=== PATIENT | male | born 1940 | race Caucasian/White ===

== ENCOUNTER 2016-09-30 08:40 | Outpatient (CLI) | payer MEDICARE, OTHER | END 2016-09-30 08:41 | disposition home or self-care (01) | DX: Z95.4 Presence of other heart-valve replacement (principal); Z79.01 Long term (current) use of anticoagulants ==

== ENCOUNTER 2016-10-28 08:20 | Outpatient (CLI) | payer MEDICARE, OTHER | END 2016-10-28 08:21 | disposition home or self-care (01) | DX: Z79.01 Long term (current) use of anticoagulants (principal); Z95.4 Presence of other heart-valve replacement ==

== ENCOUNTER 2016-11-25 09:35 | Outpatient (CLI) | payer MEDICARE, OTHER | END 2016-11-25 09:36 | disposition home or self-care (01) | DX: Z95.4 Presence of other heart-valve replacement (principal); Z79.01 Long term (current) use of anticoagulants ==

== ENCOUNTER 2016-12-10 11:31 | Outpatient (CLI) | payer MEDICARE, OTHER | END 2016-12-10 11:32 | disposition home or self-care (01) | DX: C61 Malignant neoplasm of prostate (principal); N52.31 Erectile dysfunction following radical prostatectomy ==

== ENCOUNTER 2016-12-23 10:18 | Outpatient (CLI) | payer MEDICARE, OTHER | END 2016-12-23 10:19 | disposition home or self-care (01) | DX: Z79.01 Long term (current) use of anticoagulants (principal); Z95.4 Presence of other heart-valve replacement ==

== ENCOUNTER 2017-01-13 09:42 | Outpatient (CLI) | payer MEDICARE, OTHER | END 2017-01-13 09:43 | disposition home or self-care (01) | LOC: LAB.F 09:42 | PROVIDERS: ATTEND Internal Medicine | DX: Z95.4 Presence of other heart-valve replacement (principal); Z79.01 Long term (current) use of anticoagulants | CPT/HCPCS: 85610 ==

== ENCOUNTER 2017-02-10 10:24 | Outpatient (CLI) | payer MEDICARE, OTHER | END 2017-02-10 10:25 | disposition home or self-care (01) | LOC: LAB.F 10:24 | PROVIDERS: ATTEND Internal Medicine | DX: Z95.4 Presence of other heart-valve replacement (principal); Z79.01 Long term (current) use of anticoagulants | CPT/HCPCS: 85610 ==

== ENCOUNTER 2017-03-10 10:32 | Outpatient (CLI) | payer MEDICARE, OTHER | END 2017-03-10 10:33 | disposition home or self-care (01) | LOC: LAB.F 10:32 | PROVIDERS: ATTEND Internal Medicine | DX: Z95.4 Presence of other heart-valve replacement (principal); Z79.01 Long term (current) use of anticoagulants | CPT/HCPCS: 85610 ==

== ENCOUNTER 2017-04-07 08:06 | Outpatient (CLI) | payer MEDICARE, OTHER | END 2017-04-07 08:07 | disposition home or self-care (01) | LOC: LAB.F 08:06 | PROVIDERS: ATTEND Internal Medicine | DX: Z95.4 Presence of other heart-valve replacement (principal); Z79.01 Long term (current) use of anticoagulants | CPT/HCPCS: 85610 ==

== ENCOUNTER 2017-05-05 09:11 | Outpatient (CLI) | payer MEDICARE, OTHER | END 2017-05-05 09:12 | disposition home or self-care (01) | LOC: LAB.F 09:11 | PROVIDERS: ATTEND Internal Medicine | DX: Z95.4 Presence of other heart-valve replacement (principal); Z79.01 Long term (current) use of anticoagulants | CPT/HCPCS: 85610 ==

== ENCOUNTER 2017-06-02 10:07 | Outpatient (CLI) | payer MEDICARE, OTHER | END 2017-06-02 10:08 | disposition home or self-care (01) | LOC: LAB.F 10:07 | PROVIDERS: ATTEND Internal Medicine | DX: Z95.4 Presence of other heart-valve replacement (principal); Z79.01 Long term (current) use of anticoagulants | CPT/HCPCS: 85610 ==

== ENCOUNTER 2017-06-30 08:27 | Outpatient (CLI) | payer MEDICARE, OTHER | END 2017-06-30 08:28 | disposition home or self-care (01) | LOC: LAB.F 08:27 | PROVIDERS: ATTEND Internal Medicine | DX: Z95.4 Presence of other heart-valve replacement (principal); Z79.01 Long term (current) use of anticoagulants | CPT/HCPCS: 85610 ==

== ENCOUNTER 2017-07-15 13:05 | Outpatient (CLI) | payer MEDICARE, OTHER ==
[2017-07-15 18:34] LABS: ALBUMIN/GLOBULIN RATIO 1.6 (1.0-2.2); BILIRUBIN,TOTAL 0.7 mg/dL (0.2-1.0); BUN - BLOOD UREA NITROGEN 15 mg/dL (6-20); CALCIUM 8.6 mg/dL (8.5-10.3); CARBON DIOXIDE - CO2 25 mmol/L (21-32); CHLORIDE 107 mmol/L (101-111); CHOL/HDL RATIO 3.6 (<5.0); CHOLESTEROL 197 mg/dL; CREATININE 0.8 mg/dL (0.6-1.2); GFR - MDRD 94 (>89); GLUCOSE 90 mg/dL (70-100); HDL CHOLESTEROL 55 mg/dL; LDL/HDL RATIO 2.3 (<3.6); POTASSIUM 3.8 mmol/L (3.5-5.0); SODIUM 139 mmol/L (135-145); TOTAL PROTEIN 7.5 g/dL (6.7-8.2); TRIGLYCERIDES 73 mg/dL; VLDL CHOLESTEROL 15 mg/dL
== END 2017-07-15 13:06 | disposition home or self-care (01) ==
LOC: LAB.F 13:05
PROVIDERS: ATTEND Family Medicine
DX: D64.9 Anemia, unspecified (principal); Z79.01 Long term (current) use of anticoagulants; C61 Malignant neoplasm of prostate; I10 Essential (primary) hypertension
CPT/HCPCS: 36415; 80053; 80061

== ENCOUNTER 2017-07-28 10:58 | Outpatient (CLI) | payer MEDICARE, OTHER | END 2017-07-28 10:59 | disposition home or self-care (01) | LOC: LAB.F 10:58 | PROVIDERS: ATTEND Internal Medicine | DX: Z95.4 Presence of other heart-valve replacement (principal); Z79.01 Long term (current) use of anticoagulants | CPT/HCPCS: 85610 ==

== ENCOUNTER 2017-08-25 10:22 | Outpatient (CLI) | payer MEDICARE, OTHER | END 2017-08-25 10:23 | disposition home or self-care (01) | LOC: LAB.F 10:22 | PROVIDERS: ATTEND Internal Medicine | DX: Z95.4 Presence of other heart-valve replacement (principal); Z79.01 Long term (current) use of anticoagulants | CPT/HCPCS: 85610 ==

== ENCOUNTER 2017-09-22 07:06 | Outpatient (CLI) | payer MEDICARE, OTHER | END 2017-09-22 07:07 | disposition home or self-care (01) | LOC: LAB.F 07:06 | PROVIDERS: ATTEND Internal Medicine | DX: Z95.4 Presence of other heart-valve replacement (principal); Z79.01 Long term (current) use of anticoagulants | CPT/HCPCS: 85610 ==

== ENCOUNTER 2017-10-21 07:22 | Outpatient (CLI) | payer MEDICARE, OTHER ==
[2017-10-21 10:38] LABS: BASOPHILS % (AUTO) 0.4 %; EOSINOPHILS % (AUTO) 2.6 %; HGB - HEMOGLOBIN 13.8 g/dL (14.0-18.0); LYMPHOCYTES % (AUTO) 25.4 %; MEAN CORPUSCULAR HEMOGLOBIN 29.6 pg (27.0-31.0); MEAN CORPUSCULAR HGB CONC 34.2 g/dL (32.0-36.0); MEAN CORPUSCULAR VOLUME 86.7 fL (80.0-94.0); MEAN PLATELET VOLUME 8.2 fL (7.4-11.4); NEUTROPHILS % (AUTO) 59.6 %; PLT - PLATELET COUNT 203 10^3/uL (130-450); RED BLOOD COUNT 4.67 10^6/uL (4.70-6.10); RED CELL DISTRIBUTION WIDTH 13.3 % (12.0-15.0)
[2017-10-21 10:40] LABS: ABNORMAL LYMPHS % (MANUAL) 0 %
[2017-10-21 11:08] LABS: BAND NEUTROPHILS % (MANUAL) 3 %; EOSINOPHILS # (MANUAL) 0.1 10^3/uL (0-0.7); LYMPHOCYTES % (MANUAL) 19 %; MONOCYTES # (MANUAL) 0.3 10^3/uL (0.0-1.0); NEUTROPHILS # (MANUAL) 2.6 10^3/uL (1.5-6.6); NEUTROPHILS % (MANUAL) 62 %
[2017-10-21 11:09] LABS: DIFFERENTIAL COMMENT MANUAL DIFFERENTIAL
== END 2017-10-21 07:23 | disposition home or self-care (01) ==
LOC: LAB.F 07:22
PROVIDERS: ATTEND Internal Medicine
DX: Z95.4 Presence of other heart-valve replacement (principal); Z95.2 Presence of prosthetic heart valve; Z79.01 Long term (current) use of anticoagulants; Q23.0 Congenital stenosis of aortic valve; Z79.899 Other long term (current) drug therapy
CPT/HCPCS: 36415; 85025; 85610

== ENCOUNTER → 2017-12-01 | Outpatient (CLI) | payer MEDICARE, OTHER | LOC: LAB.F 08:00 | PROVIDERS: ATTEND Internal Medicine | DX: Z95.4 Presence of other heart-valve replacement (principal); Z79.01 Long term (current) use of anticoagulants | CPT/HCPCS: 85610 ==

== ENCOUNTER 2018-01-12 08:20 | Outpatient (CLI) | payer MEDICARE, OTHER | END 2018-01-12 08:21 | disposition home or self-care (01) | LOC: LAB.F 08:20 | PROVIDERS: ATTEND Internal Medicine | DX: Z95.4 Presence of other heart-valve replacement (principal); Z79.01 Long term (current) use of anticoagulants | CPT/HCPCS: 85610 ==

== ENCOUNTER 2018-02-23 08:43 | Outpatient (CLI) | payer MEDICARE, OTHER | END 2018-02-23 08:44 | disposition home or self-care (01) | LOC: LAB.F 08:43 | PROVIDERS: ATTEND Internal Medicine | DX: Z79.01 Long term (current) use of anticoagulants (principal); Z95.4 Presence of other heart-valve replacement | CPT/HCPCS: 85610 ==

== ENCOUNTER 2018-03-30 08:38 | Outpatient (CLI) | payer MEDICARE, OTHER ==
--- NOTE | 2018-03-30 14:46 | DEXA Report ---
Procedure Date: 03/30/2018 Accession Number: [id number] / [id number] Procedure: DEX - Dexa Spine and/or Hip CPT Code: FULL RESULT: EXAM: Dexa Spine and/or Hip DATE: 03/30/2018 9:15 AM CLINICAL HISTORY: OSTEOPOROSIS TECHNIQUE: Dual energy x-ray absorptiometry (DXA) was performed on a [employer]. Regions measured are the AP Spine, femoral neck, and if needed forearm. COMPARISON: None. In accordance with the International Society for Clinical Densitometry (ISCD) guidelines, data from previous exams may be reanalyzed using current recommendations and techniques. This is done to allow a more accurate basis for comparison with the current study. FINDINGS: The data for the lumbar spine is as follows: BMD (g/cm/cm) T-SCORE Z-SCORE REGION L1 1.009 -1.3 -0.8 L2 1.069 -1.4 -1.0 L3 0.998 -2.0 -1.6 L4 1.080 -1.3 -0.9 TOTAL 1.041 -1.5 -1.0 NOTE: All evaluable vertebrae are used for classification The data for the hip is as follows: BMD (g/cm/cm) T-SCORE Z-SCORE REGION Neck 0.839 -1.8 -0.5 TOTAL 0.868 -1.6 -0.7 NOTE: The femoral neck or total proximal femur, whichever is lowest, is used for classification. IMPRESSION: THE WHO CLASSIFICATION BASED ON THE INTERNATIONAL REFERENCE STANDARD IS OSTEOPENIA. THE FRACTURE RISK IS INCREASED. RECOMMENDATION: Patients with diagnosis of osteoporosis or osteopenia should have regular bone mineral density assessment. For those eligible for Medicare, routine testing is allowed once every 2 years. Testing frequency can be increased for patients who have rapidly progressing disease or for those who are receiving medical therapy to restore bone mass. COMMENT: World Health Organization (WHO) definitions for osteoporosis and osteopenia: NORMAL BMD: T-score at -1.0 or higher, fracture risk is low OSTEOPENIA BMD: T-score between -1.0 and -2.5, fracture risk is increased. OSTEOPOROSIS BMD: T-score at -2.5 or lower, fracture risk is high. National Osteoporosis Foundation recommends: 1. Obtain adequate dietary calcium (at least 1200 mg per day) and vitamin D (400-800 international units per day). 2. Participate, as appropriate, in regular weightbearing and muscle-strengthening exercise. 3. Avoid tobacco use and reduce alcohol and caffeine intake. 4. For more detailed information see the website at www.NOF.org.
== END 2018-03-30 08:39 | disposition home or self-care (01) ==
LOC: DI 08:38
PROVIDERS: ATTEND Family Medicine
DX: M85.89 Other specified disorders of bone density and structure, multiple sites (principal)
CPT/HCPCS: 77080

== ENCOUNTER 2018-04-05 10:58 | Outpatient (CLI) | payer MEDICARE, OTHER | END 2018-04-05 10:59 | disposition home or self-care (01) | LOC: LAB.F 10:58 | PROVIDERS: ATTEND Internal Medicine | DX: Z95.4 Presence of other heart-valve replacement (principal); Z79.01 Long term (current) use of anticoagulants | CPT/HCPCS: 85610 ==

== ENCOUNTER 2018-05-18 10:42 | Outpatient (CLI) | payer MEDICARE, OTHER | END 2018-05-18 10:43 | disposition home or self-care (01) | LOC: LAB.F 10:42 | PROVIDERS: ATTEND Internal Medicine | DX: Z95.4 Presence of other heart-valve replacement (principal); Z79.01 Long term (current) use of anticoagulants | CPT/HCPCS: 85610 ==

== ENCOUNTER 2018-06-01 08:57 | Outpatient (CLI) | payer MEDICARE, OTHER | END 2018-06-01 08:58 | disposition home or self-care (01) | LOC: LAB.F 08:57 | PROVIDERS: ATTEND Internal Medicine | DX: Z95.4 Presence of other heart-valve replacement (principal); Z79.01 Long term (current) use of anticoagulants | CPT/HCPCS: 85610 ==

== ENCOUNTER 2018-06-15 10:27 | Outpatient (CLI) | payer MEDICARE, OTHER | END 2018-06-15 10:28 | disposition home or self-care (01) | LOC: LAB.F 10:27 | PROVIDERS: ATTEND Internal Medicine | DX: Z95.4 Presence of other heart-valve replacement (principal); Z79.01 Long term (current) use of anticoagulants | CPT/HCPCS: 85610 ==

== ENCOUNTER 2018-06-29 09:51 | Outpatient (CLI) | payer MEDICARE, OTHER | END 2018-06-29 09:52 | disposition home or self-care (01) | LOC: LAB.F 09:51 | PROVIDERS: ATTEND Internal Medicine | DX: Z95.4 Presence of other heart-valve replacement (principal); Z79.01 Long term (current) use of anticoagulants | CPT/HCPCS: 85610 ==

== ENCOUNTER 2018-07-13 09:14 | Outpatient (CLI) | payer MEDICARE, OTHER | END 2018-07-13 09:15 | disposition home or self-care (01) | LOC: LAB.F 09:14 | PROVIDERS: ATTEND Internal Medicine | DX: Z95.4 Presence of other heart-valve replacement (principal); Z79.01 Long term (current) use of anticoagulants | CPT/HCPCS: 85610 ==

== ENCOUNTER 2018-08-03 08:59 | Outpatient (CLI) | payer MEDICARE, OTHER | END 2018-08-03 09:00 | disposition home or self-care (01) | LOC: LAB.F 08:59 | PROVIDERS: ATTEND Internal Medicine | DX: Z95.4 Presence of other heart-valve replacement (principal); Z79.01 Long term (current) use of anticoagulants | CPT/HCPCS: 85610 ==

== ENCOUNTER 2018-08-17 09:10 | Outpatient (CLI) | payer MEDICARE, OTHER | END 2018-08-17 09:11 | disposition home or self-care (01) | LOC: LAB.F 09:10 | PROVIDERS: ATTEND Internal Medicine | DX: Z95.4 Presence of other heart-valve replacement (principal); Z79.01 Long term (current) use of anticoagulants | CPT/HCPCS: 85610 ==

== ENCOUNTER 2018-09-07 10:53 | Outpatient (CLI) | payer MEDICARE, OTHER | END 2018-09-07 10:54 | disposition home or self-care (01) | LOC: LAB.F 10:53 | PROVIDERS: ATTEND Internal Medicine | DX: Z95.4 Presence of other heart-valve replacement (principal); Z79.01 Long term (current) use of anticoagulants | CPT/HCPCS: 85610 ==

== ENCOUNTER 2018-10-05 10:07 | Outpatient (CLI) | payer MEDICARE, OTHER | END 2018-10-05 10:08 | disposition home or self-care (01) | LOC: LAB.F 10:07 | PROVIDERS: ATTEND Internal Medicine | DX: Z95.4 Presence of other heart-valve replacement (principal); Z79.01 Long term (current) use of anticoagulants | CPT/HCPCS: 85610 ==

== ENCOUNTER 2018-11-02 09:44 | Outpatient (CLI) | payer MEDICARE, OTHER | END 2018-11-02 09:45 | disposition home or self-care (01) | LOC: LAB.F 09:44 | PROVIDERS: ATTEND Internal Medicine | DX: Z95.4 Presence of other heart-valve replacement (principal); Z79.01 Long term (current) use of anticoagulants | CPT/HCPCS: 85610 ==

== ENCOUNTER 2018-11-30 10:41 | Outpatient (CLI) | payer MEDICARE, OTHER | END 2018-11-30 10:42 | disposition home or self-care (01) | LOC: LAB.F 10:41 | PROVIDERS: ATTEND Internal Medicine | DX: Z95.4 Presence of other heart-valve replacement (principal); Z79.01 Long term (current) use of anticoagulants | CPT/HCPCS: 85610 ==

== ENCOUNTER 2018-12-28 09:46 | Outpatient (CLI) | payer MEDICARE, OTHER | END 2018-12-28 09:47 | disposition home or self-care (01) | LOC: LAB.F 09:46 | PROVIDERS: ATTEND Internal Medicine | DX: Z95.4 Presence of other heart-valve replacement (principal); Z79.01 Long term (current) use of anticoagulants | CPT/HCPCS: 85610 ==

== ENCOUNTER 2019-01-16 10:46 | Outpatient (CLI) | payer MEDICARE, OTHER | END 2019-01-16 10:47 | disposition home or self-care (01) | LOC: LAB.F 10:46 | PROVIDERS: ATTEND Internal Medicine | DX: Z95.4 Presence of other heart-valve replacement (principal); Z79.01 Long term (current) use of anticoagulants | CPT/HCPCS: 85610 ==

== ENCOUNTER 2019-01-25 09:58 | Outpatient (CLI) | payer MEDICARE, OTHER | END 2019-01-25 09:59 | disposition home or self-care (01) | LOC: LAB.F 09:58 | PROVIDERS: ATTEND Internal Medicine | DX: Z95.4 Presence of other heart-valve replacement (principal); Z79.01 Long term (current) use of anticoagulants | CPT/HCPCS: 85610 ==

== ENCOUNTER 2019-02-15 12:33 | Outpatient (CLI) | payer MEDICARE, OTHER | END 2019-02-15 12:34 | disposition home or self-care (01) | LOC: LAB.F 12:33 | PROVIDERS: ATTEND Internal Medicine | DX: Z79.01 Long term (current) use of anticoagulants (principal); Z95.4 Presence of other heart-valve replacement | CPT/HCPCS: 85610 ==

== ENCOUNTER 2019-03-15 07:57 | Outpatient (CLI) | payer MEDICARE, OTHER | END 2019-03-15 07:58 | disposition home or self-care (01) | LOC: LAB.S 07:57 | PROVIDERS: ATTEND Internal Medicine | DX: Z95.4 Presence of other heart-valve replacement (principal); Z79.01 Long term (current) use of anticoagulants | CPT/HCPCS: 85610 ==

== ENCOUNTER 2019-04-12 08:18 | Outpatient (CLI) | payer MEDICARE, OTHER | END 2019-04-12 08:19 | disposition home or self-care (01) | LOC: LAB.S 08:18 | PROVIDERS: ATTEND Internal Medicine | DX: Z95.4 Presence of other heart-valve replacement (principal); Z79.01 Long term (current) use of anticoagulants | CPT/HCPCS: 85610 ==

== ENCOUNTER 2019-05-10 08:22 | Outpatient (CLI) | payer MEDICARE, OTHER | END 2019-05-10 08:23 | disposition home or self-care (01) | LOC: LAB.S 08:22 | PROVIDERS: ATTEND Internal Medicine | DX: Z95.4 Presence of other heart-valve replacement (principal); Z79.01 Long term (current) use of anticoagulants | CPT/HCPCS: 85610 ==

== ENCOUNTER 2019-06-07 09:49 | Outpatient (CLI) | payer MEDICARE, OTHER | END 2019-06-07 09:50 | disposition home or self-care (01) | LOC: LAB.S 09:49 | PROVIDERS: ATTEND Internal Medicine | DX: Z95.4 Presence of other heart-valve replacement (principal); Z79.01 Long term (current) use of anticoagulants | CPT/HCPCS: 85610 ==

== ENCOUNTER 2019-07-05 10:04 | Outpatient (CLI) | payer MEDICARE, OTHER | END 2019-07-05 10:05 | disposition home or self-care (01) | LOC: LAB.S 10:04 | PROVIDERS: ATTEND Internal Medicine | DX: Z95.4 Presence of other heart-valve replacement (principal); Z79.01 Long term (current) use of anticoagulants | CPT/HCPCS: 85610 ==

== ENCOUNTER 2019-07-26 11:09 | Outpatient (CLI) | payer MEDICARE, OTHER | END 2019-07-26 11:10 | disposition home or self-care (01) | LOC: LAB.S 11:09 | PROVIDERS: ATTEND Internal Medicine | DX: Z95.4 Presence of other heart-valve replacement (principal); Z79.01 Long term (current) use of anticoagulants | CPT/HCPCS: 85610 ==

== ENCOUNTER 2019-08-23 11:47 | Outpatient (CLI) | payer MEDICARE, OTHER | END 2019-08-23 11:48 | disposition home or self-care (01) | LOC: LAB.S 11:47 | PROVIDERS: ATTEND Internal Medicine | DX: Z95.4 Presence of other heart-valve replacement (principal); Z79.01 Long term (current) use of anticoagulants | CPT/HCPCS: 85610 ==

== ENCOUNTER 2019-09-20 11:39 | Outpatient (CLI) | payer MEDICARE, OTHER | END 2019-09-20 11:40 | disposition home or self-care (01) | LOC: LAB.S 11:39 | PROVIDERS: ATTEND Internal Medicine | DX: Z79.01 Long term (current) use of anticoagulants (principal); Z95.4 Presence of other heart-valve replacement | CPT/HCPCS: 85610 ==

== ENCOUNTER 2019-10-18 08:34 | Outpatient (CLI) | payer MEDICARE, OTHER | END 2019-10-18 08:35 | disposition home or self-care (01) | LOC: LAB.S 08:34 | PROVIDERS: ATTEND Internal Medicine | DX: Z95.4 Presence of other heart-valve replacement (principal); Z79.01 Long term (current) use of anticoagulants | CPT/HCPCS: 85610 ==

== ENCOUNTER 2019-10-25 10:31 | Outpatient (CLI) | payer MEDICARE, OTHER | END 2019-10-25 10:32 | disposition home or self-care (01) | LOC: LAB.S 10:31 | PROVIDERS: ATTEND Ophthalmology | DX: Z79.01 Long term (current) use of anticoagulants (principal); Z79.4 Long term (current) use of insulin; L20.89 Other atopic dermatitis | CPT/HCPCS: 85610 ==

== ENCOUNTER 2019-11-08 07:13 | Outpatient (CLI) | payer MEDICARE, OTHER | END 2019-11-08 07:14 | disposition home or self-care (01) | LOC: LAB.S 07:13 | PROVIDERS: ATTEND Ophthalmology | DX: L20.89 Other atopic dermatitis (principal); Z79.01 Long term (current) use of anticoagulants; Z79.4 Long term (current) use of insulin | CPT/HCPCS: 85610 ==

== ENCOUNTER 2020-02-14 15:00 | Emergency (ER) | payer MEDICARE, OTHER ==
--- NOTE | 2020-02-14 15:26 | ED Physician Documentation ---
PD HPI HEAD INJURY - Stated complaint Stated Complaint: HEAD LAC - Chief complaint Chief Complaint: Trauma Hd/Nk - History obtained from History obtained from: Patient, Family - History of Present Illness Mechanism of head injury: Fell Where head injury occurred: Home Timing - onset: Today Location of injury: Back Quality of pain: Pain Associated symptoms: No: LOC, AMS, Amnesia, Nausea / vomiting, Neck pain, Paresthesias, Seizures, Ear drainage, Nasal drainage Symptoms improve with: Rest Contributing factors: Anticoagulated Similar symptoms before: Diagnosis (closed head injury) Recently seen: Not recently seen - Additional information Additional information: 79-year-old male with a 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 He did not have any loss of consciousness he denies any other specific pain associated with the fall. He did have some pain in his head initially denies any pain currently denies any pain in his neck. He has not recently been ill. Review of Systems Constitutional: denies: Fever Eyes: denies: Decreased vision Ears: denies: Ear pain Nose: denies: Rhinorrhea / runny nose, Congestion Throat: denies: Sore throat Cardiac: denies: Chest pain / pressure, Palpitations Respiratory: denies: Dyspnea, Cough GI: denies: Abdominal Pain, Nausea, Vomiting, Constipation, Diarrhea : denies: Dysuria, Frequency PD PAST MEDICAL HISTORY - Past Medical History Cardiovascular: Valve disorder, Other Respiratory: None Endocrine/Autoimmune: None : Benign prostate hypertrophy, Other HEENT: None Psych: None Musculoskeletal: None Derm: None - Past Surgical History Past Surgical History: Yes General: Colonoscopy Cardiovascular: Valve replacement - Present Medications Home Medications: Ambulatory Orders Medication Instructions Recorded Confirmed Bicalutamide 50 mg PO DAILY 07/19/14 08/06/14 Finasteride 5 mg PO DAILY 07/19/14 08/06/14 Leuprolide [Lupron] 30 mg IM ONCE 07/19/14 08/06/14 Tamsulosin [Flomax] 0.4 mg PO DAILY 07/19/14 08/06/14 Warfarin [Coumadin] 10 mg PO 1400 07/19/14 08/06/14 Enoxaparin Sodium [Lovenox] 150 mg SQ DAILY 07/30/14 08/06/14 - Allergies Allergies/Adverse Reactions: Allergies Allergy/AdvReac Type Severity Reaction Status Date / Time Iodinated Contrast Media Allergy Intermediate Rash Verified 07/27/14 11:52 [Iodinated Contrast Media - IV Dye] - Social History Does the pt smoke?: No Smoking Status: Former smoker PD ED PE NORMAL - Vitals Vital signs reviewed: Yes (hypertension ) - General General: No acute distress, Well developed/nourished - HEENT HEENT: Atraumatic, PERRL, EOMI, Other (The entire scalp is palpated deeply without specific point tenderness or hematoma.) - Neck Neck: Supple, no meningeal sign, No bony TTP - Cardiac Cardiac: Other (Regular rate and rhythm with a 2 out of 6 holosystolic murmur with an end-systolic click at the left sternal border.) - Respiratory Respiratory: No respiratory distress, Clear bilaterally - Abdomen Abdomen: Soft, Non tender, No organomegaly - Back Back: No CVA TTP, No spinal TTP - Derm Derm: Normal color, Warm and dry, No rash - Extremities Extremities: No deformity, No edema - Neuro Neuro: Alert and oriented X 3, 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, No motor deficit, No sensory deficit, Normal speech Eye Opening: Spontaneous Motor: Obeys Commands Verbal: Oriented GCS Score: 15 - Psych Psych: Normal mood, Normal affect Results - Vitals Vitals: Vital Signs - 24 hr 02/14/20 15:05 Temperature 36.8 C Heart Rate 98 Respiratory 14 Rate Blood Pressure 142/79 H O2 Saturation 98 Oxygen O2 Source Room air - EKG (time done) 1522 Rate: Rate (enter#) (58) Rhythm: NSR Compare to prior EKG: Old EKG unavailable Computer interpretation: Agree with computer - Labs Labs: Laboratory Tests 02/14/20 15:22 PT 38.6 H INR 3.6 H - Rads (name of study) CT head w/o Radiology: Prelim report reviewed (Impression: 1. Small chronic bilateral frontoparietal subdural hematomas. 2. No acute intracranial hemorrhage. 3. No abnormal intracranial mass-effect or midline shift.), EMP read indepedently, See rad report PD MEDICAL DECISION MAKING - ED course Complexity details: reviewed results, re-evaluated patient, considered differential, d/w patient, d/w family ED course: 79-year-old male with an elevated INR has fallen down a hill striking his head without loss of consciousness he arrives to the emergency department without neurologic findings and a CT scan is done of his head without evidence of new intracranial hemorrhage. Departure - Departure Disposition: 01 Home, Self Care Clinical Impression: Concussion Qualifiers: Encounter type: initial encounter Loss of consciousness presence/duration: without LOC Qualified Code(s): S06.0X0A - Concussion without loss of consciousness, initial encounter Condition: Stable Instructions: ED Concussion Follow-Up: LOURDES CERVANTES MD [Primary Care Provider] - Comments: Today your INR was 3.6 and our recommendation is for you to not take your Coumadin today and follow-up with your primary care doctor about re-starting your Coumadin.
--- NOTE | 2020-02-14 15:52 | CT Report ---
Reason: polytrauma, critical Procedure Date: 02/14/2020 Accession Number: [id number] / [id number] Procedure: CT - HEAD WO CPT Code: Final Report FULL RESULT: PROCEDURE: HEAD WO INDICATIONS: polytrauma, critical TECHNIQUE: Noncontrast 4.5 mm thick angled axial sections acquired from the foramen magnum to the vertex. For radiation dose reduction, the following was used: automated exposure control, adjustment of mA and/or kV according to patient size. COMPARISON: None FINDINGS: Image quality: Excellent. CSF spaces: Basal cisterns are patent. No extra-axial fluid collections. The ventricles are symmetric in size and shape. Brain: No intracranial masses. No intracranial mass effect or midline shift. Small chronic bilateral frontal-parietal subdural hematomas. There is cerebral volume loss for age, with resultant ventricular and sulcal prominence. There are periventricular and deep white matter chronic small vessel ischemic changes. There is intracranial internal carotid artery atherosclerosis. Skull and face: Calvarium and visualized facial bones appear intact, without suspicious lesions. Sinuses: Visualized sinuses and mastoids are clear. IMPRESSION: 1. Small chronic bilateral frontal-parietal subdural hematomas. 2. No acute intracranial hemorrhage. 3. No abnormal intracranial mass effect or midline shift. Reviewed by: Florence Melendez MD, PhD on 02/14/2020 3:51 PM PDT Approved by: Florence Melendez MD, PhD on 02/14/2020 3:51 PM PDT Station ID: [id number]
[2020-02-14 16:14] LABS: INR 3.6 (0.8-1.2); PT - PROTHROMBIN TIME 38.6 secs (9.9-12.6)
[2020-02-14 16:31] VITALS: BP 157/72
== END 2020-02-14 16:31 | disposition home or self-care (01) ==
LOC: ED 15:00
DX: S06.0X0A Concussion without loss of consciousness, initial encounter (principal); W17.81XA Fall down embankment (hill), initial encounter; Y93.H2 Activity, gardening and landscaping; Y92.007 Garden or yard of unspecified non-institutional (private) residence as the place of occurrence of the external cause; R79.1 Abnormal coagulation profile; Z79.01 Long term (current) use of anticoagulants; Z95.2 Presence of prosthetic heart valve; Z87.891 Personal history of nicotine dependence
CPT/HCPCS: 36415; 70450; 85610; 93005; 99284

== ENCOUNTER 2020-02-21 07:04 | Outpatient (CLI) | payer MEDICARE, OTHER | END 2020-02-21 07:05 | disposition home or self-care (01) | LOC: LAB.S 07:04 | PROVIDERS: ATTEND Nurse Practitioner | DX: Z95.2 Presence of prosthetic heart valve (principal) | CPT/HCPCS: 85610 ==

== ENCOUNTER 2020-03-13 06:58 | Outpatient (CLI) | payer MEDICARE, OTHER | END 2020-03-13 06:59 | disposition home or self-care (01) | LOC: LAB.S 06:58 | PROVIDERS: ATTEND Nurse Practitioner | DX: Z95.2 Presence of prosthetic heart valve (principal) | CPT/HCPCS: 85610 ==

== ENCOUNTER 2020-03-27 07:06 | Outpatient (CLI) | payer MEDICARE, OTHER | END 2020-03-27 07:07 | disposition home or self-care (01) | LOC: LAB.S 07:06 | PROVIDERS: ATTEND Nurse Practitioner | DX: Z95.2 Presence of prosthetic heart valve (principal) | CPT/HCPCS: 85610 ==

== ENCOUNTER 2020-04-17 07:10 | Outpatient (CLI) | payer MEDICARE, OTHER | END 2020-04-17 07:11 | disposition home or self-care (01) | LOC: LAB.S 07:10 | PROVIDERS: ATTEND Nurse Practitioner | DX: Z95.2 Presence of prosthetic heart valve (principal) | CPT/HCPCS: 85610 ==

== ENCOUNTER 2020-05-08 07:14 | Outpatient (CLI) | payer MEDICARE, OTHER | END 2020-05-08 07:15 | disposition home or self-care (01) | LOC: LAB.S 07:14 | PROVIDERS: ATTEND Nurse Practitioner | DX: Z95.2 Presence of prosthetic heart valve (principal) | CPT/HCPCS: 85610 ==

== ENCOUNTER 2020-07-03 07:18 | Outpatient (CLI) | payer MEDICARE, OTHER | END 2020-07-03 07:19 | disposition home or self-care (01) | LOC: LAB.S 07:18 | PROVIDERS: ATTEND Nurse Practitioner | DX: Z95.2 Presence of prosthetic heart valve (principal) | CPT/HCPCS: 85610 ==

== ENCOUNTER 2020-07-24 07:03 | Outpatient (CLI) | payer MEDICARE, OTHER | END 2020-07-24 07:04 | disposition home or self-care (01) | LOC: LAB.S 07:03 | PROVIDERS: ATTEND Nurse Practitioner | DX: Z95.2 Presence of prosthetic heart valve (principal) | CPT/HCPCS: 85610 ==

== ENCOUNTER 2020-08-21 07:09 | Outpatient (CLI) | payer MEDICARE, OTHER | END 2020-08-21 07:10 | disposition home or self-care (01) | LOC: LAB.S 07:09 | PROVIDERS: ATTEND Nurse Practitioner | DX: Z95.2 Presence of prosthetic heart valve (principal) | CPT/HCPCS: 85610 ==

== ENCOUNTER 2020-09-23 07:42 | Outpatient (CLI) | payer MEDICARE, OTHER | END 2020-09-23 07:43 | disposition home or self-care (01) | LOC: LAB.S 07:42 | PROVIDERS: ATTEND Nurse Practitioner | DX: Z95.2 Presence of prosthetic heart valve (principal) | CPT/HCPCS: 85610 ==

== ENCOUNTER 2020-10-02 07:07 | Outpatient (CLI) | payer MEDICARE, OTHER | END 2020-10-02 07:08 | disposition home or self-care (01) | LOC: LAB.S 07:07 | PROVIDERS: ATTEND Nurse Practitioner | DX: Z95.2 Presence of prosthetic heart valve (principal) | CPT/HCPCS: 85610 ==

== ENCOUNTER 2020-10-16 11:25 | Outpatient (CLI) | payer MEDICARE, OTHER | END 2020-10-16 11:26 | disposition home or self-care (01) | LOC: LAB.S 11:25 | PROVIDERS: ATTEND Nurse Practitioner | DX: Z95.2 Presence of prosthetic heart valve (principal) | CPT/HCPCS: 85610 ==

== ENCOUNTER 2020-11-13 07:20 | Outpatient (CLI) | payer MEDICARE, OTHER | END 2020-11-13 07:21 | disposition home or self-care (01) | LOC: LAB.S 07:20 | PROVIDERS: ATTEND Family Medicine | DX: Z95.2 Presence of prosthetic heart valve (principal) | CPT/HCPCS: 85610 ==

== ENCOUNTER 2020-12-04 09:23 | Outpatient (CLI) | payer MEDICARE, OTHER | END 2020-12-04 09:24 | disposition home or self-care (01) | LOC: LAB.S 09:23 | PROVIDERS: ATTEND Nurse Practitioner | DX: Z95.2 Presence of prosthetic heart valve (principal) | CPT/HCPCS: 85610 ==

== ENCOUNTER 2020-12-25 13:37 | Outpatient (CLI) | payer MEDICARE, OTHER | END 2020-12-25 13:38 | disposition home or self-care (01) | LOC: LAB.S 13:37 | PROVIDERS: ATTEND Nurse Practitioner | DX: Z95.2 Presence of prosthetic heart valve (principal) | CPT/HCPCS: 85610 ==

== ENCOUNTER 2021-01-22 10:45 | Outpatient (CLI) | payer MEDICARE, OTHER | END 2021-01-22 10:46 | disposition home or self-care (01) | LOC: LAB.S 10:45 | PROVIDERS: ATTEND Nurse Practitioner | DX: Z95.2 Presence of prosthetic heart valve (principal) | CPT/HCPCS: 36416; 85610 ==

== ENCOUNTER 2021-02-20 07:40 | Outpatient (CLI) | payer MEDICARE, OTHER | END 2021-02-20 07:41 | disposition home or self-care (01) | LOC: LAB.S 07:40 | PROVIDERS: ATTEND Nurse Practitioner | DX: Z95.2 Presence of prosthetic heart valve (principal) | CPT/HCPCS: 36416; 85610 ==

== ENCOUNTER 2021-03-12 11:28 | Outpatient (CLI) | payer MEDICARE, OTHER | END 2021-03-12 11:29 | disposition home or self-care (01) | LOC: LAB.S 11:28 | PROVIDERS: ATTEND Nurse Practitioner | DX: Z95.2 Presence of prosthetic heart valve (principal) | CPT/HCPCS: 36416; 85610 ==

== ENCOUNTER 2021-03-27 10:49 | Outpatient (CLI) | payer MEDICARE, OTHER | END 2021-03-27 10:50 | disposition home or self-care (01) | LOC: LAB.S 10:49 | PROVIDERS: ATTEND Nurse Practitioner | DX: Z95.2 Presence of prosthetic heart valve (principal) | CPT/HCPCS: 36416; 85610 ==

== ENCOUNTER 2021-04-17 10:55 | Outpatient (CLI) | payer MEDICARE, OTHER | END 2021-04-17 10:56 | disposition home or self-care (01) | LOC: LAB.S 10:55 | PROVIDERS: ATTEND Nurse Practitioner | DX: Z95.2 Presence of prosthetic heart valve (principal) | CPT/HCPCS: 36416; 85610 ==

== ENCOUNTER 2021-05-15 10:44 | Outpatient (CLI) | payer MEDICARE, OTHER ==
[2021-05-15 15:09] LABS: HCT - HEMATOCRIT 39.7 % (42.0-52.0); HGB - HEMOGLOBIN 13.1 g/dL (14.0-18.0); MEAN CORPUSCULAR VOLUME 93.9 fL (80.0-94.0); MEAN PLATELET VOLUME 10.2 fL (7.4-11.4); RED BLOOD COUNT 4.23 10^6/uL (4.70-6.10); WHITE BLOOD COUNT 6.7 x10^3/uL (4.8-10.8)
== END 2021-05-15 10:45 | disposition home or self-care (01) ==
LOC: LAB.S 10:44
PROVIDERS: ATTEND Nurse Practitioner
DX: Z95.2 Presence of prosthetic heart valve (principal); Q23.0 Congenital stenosis of aortic valve
CPT/HCPCS: 36415; 85027; 85610

== ENCOUNTER 2021-06-12 11:51 | Outpatient (CLI) | payer MEDICARE, OTHER | END 2021-06-12 11:52 | disposition home or self-care (01) | LOC: LAB.S 11:51 | PROVIDERS: ATTEND Nurse Practitioner | DX: Z95.2 Presence of prosthetic heart valve (principal) | CPT/HCPCS: 36416; 85610 ==

== ENCOUNTER 2021-07-10 10:20 | Outpatient (CLI) | payer MEDICARE, OTHER | END 2021-07-10 10:21 | disposition home or self-care (01) | LOC: LAB.S 10:20 | PROVIDERS: ATTEND Nurse Practitioner | DX: Z95.2 Presence of prosthetic heart valve (principal) | CPT/HCPCS: 36416; 85610 ==

== ENCOUNTER 2021-08-14 14:58 | Outpatient (CLI) | payer MEDICARE, OTHER | END 2021-08-14 14:59 | disposition home or self-care (01) | LOC: LAB.S 14:58 | PROVIDERS: ATTEND Nurse Practitioner | DX: Z95.2 Presence of prosthetic heart valve (principal) | CPT/HCPCS: 36416; 85610 ==

== ENCOUNTER 2021-09-18 11:11 | Outpatient (CLI) | payer MEDICARE, OTHER | END 2021-09-18 11:12 | disposition home or self-care (01) | LOC: LAB.S 11:11 | PROVIDERS: ATTEND Nurse Practitioner | DX: Z95.2 Presence of prosthetic heart valve (principal) | CPT/HCPCS: 36416; 85610 ==

== ENCOUNTER 2021-10-16 14:58 | Outpatient (CLI) | payer MEDICARE, OTHER ==
[2021-10-16 20:12] LABS: BASOPHILS % (AUTO) 0.7 %; EOSINOPHILS # (AUTO) 0.1 10^3/uL (0.0-0.7); EOSINOPHILS % (AUTO) 2.1 %; HCT - HEMATOCRIT 37.6 % (42.0-52.0); HGB - HEMOGLOBIN 12.3 g/dL (14.0-18.0); LYMPHOCYTES # (AUTO) 0.9 10^3/uL (1.5-3.5); LYMPHOCYTES % (AUTO) 16.5 %; MEAN CORPUSCULAR HEMOGLOBIN 30.4 pg (27.0-31.0); MEAN CORPUSCULAR HGB CONC 32.7 g/dL (32.0-36.0); MEAN CORPUSCULAR VOLUME 93.1 fL (80.0-94.0); MEAN PLATELET VOLUME 10.3 fL (7.4-11.4); MONOCYTES # (AUTO) 0.8 10^3/uL (0.0-1.0); MONOCYTES % (AUTO) 14.4 %; NEUTROPHILS # (AUTO) 3.7 10^3/uL (1.5-6.6); NEUTROPHILS % (AUTO) 65.9 %; PLT - PLATELET COUNT 246 10^3/uL (130-450); RED BLOOD COUNT 4.04 10^6/uL (4.70-6.10); RED CELL DISTRIBUTION WIDTH 13.2 % (12.0-15.0); WHITE BLOOD COUNT 5.6 x10^3/uL (4.8-10.8)
[2021-10-16 20:33] LABS: BILIRUBIN,URINE NEGATIVE (NEGATIVE); GLUCOSE, URINE (UA) NEGATIVE (NEGATIVE); KETONES,URINE (UA) TRACE mg/dL (NEGATIVE); LEUKOCYTE ESTERASE, URINE NEGATIVE (NEGATIVE); NITRITE,URINE NEGATIVE (NEGATIVE); OCCULT BLOOD,URINE NEGATIVE (NEGATIVE); PROTEIN,URINE NEGATIVE (NEGATIVE); UROBILINOGEN,URINE 1 (NORMAL) E.U./dL (NORMAL)
[2021-10-16 20:41] LABS: AMORPHOUS SEDIMENT,UR Rare /LPF; BACTERIA,URINE None Seen /HPF (None Seen); CLARITY,URINE CLEAR (CLEAR); RBC,URINE None Seen /HPF (0-5); SQUAMOUS EPITHELIAL CELL,UR NONE SEEN (<= Few); WBC,URINE 0-3 /HPF (0-3)
== END 2021-10-16 14:59 | disposition home or self-care (01) ==
LOC: LAB.S 14:58
PROVIDERS: ATTEND Psychiatry & Neurology Neurology
DX: G20 Parkinson's disease (principal); R44.1 Visual hallucinations; R26.81 Unsteadiness on feet
CPT/HCPCS: 36415; 81001; 85025; 87086

== ENCOUNTER 2021-10-17 17:37 | Outpatient (CLI) | payer MEDICARE, OTHER ==
[2021-10-17 21:16] LABS: ALBUMIN 3.6 g/dL (3.2-5.5); ALBUMIN/GLOBULIN RATIO 1.2 (1.0-2.2); BILIRUBIN,TOTAL 0.6 mg/dL (0.2-1.0); POTASSIUM 3.9 mmol/L (3.5-5.0); TOTAL PROTEIN 6.7 g/dL (6.7-8.2)
== END 2021-10-17 17:38 | disposition home or self-care (01) ==
LOC: LAB.S 17:37
PROVIDERS: ATTEND Psychiatry & Neurology Neurology
DX: G20 Parkinson's disease (principal); R44.1 Visual hallucinations; R26.81 Unsteadiness on feet
CPT/HCPCS: 36415; 80053

== ENCOUNTER 2021-10-30 14:07 | Outpatient (CLI) | payer MEDICARE, OTHER | END 2021-10-30 14:08 | disposition home or self-care (01) | LOC: LAB.S 14:07 | PROVIDERS: ATTEND Nurse Practitioner | DX: Z95.2 Presence of prosthetic heart valve (principal) | CPT/HCPCS: 36416; 85610 ==

== ENCOUNTER 2021-11-06 10:30 | Outpatient (CLI) | payer MEDICARE, OTHER | END 2021-11-06 10:31 | disposition home or self-care (01) | LOC: LAB.S 10:30 | PROVIDERS: ATTEND Nurse Practitioner | DX: Z95.2 Presence of prosthetic heart valve (principal) | CPT/HCPCS: 36416; 85610 ==

== ENCOUNTER 2021-11-20 10:46 | Outpatient (CLI) | payer MEDICARE, OTHER | END 2021-11-20 10:47 | disposition home or self-care (01) | LOC: LAB.S 10:46 | PROVIDERS: ATTEND Nurse Practitioner | DX: Z95.2 Presence of prosthetic heart valve (principal) | CPT/HCPCS: 36416; 85610 ==

== ENCOUNTER 2021-12-22 12:16 | Outpatient (CLI) | payer MEDICARE, OTHER | END 2021-12-22 12:17 | disposition short-term general hospital (02) | LOC: EMS 12:16 | DX: S09.90XA Unspecified injury of head, initial encounter (principal); M25.552 Pain in left hip; S51.012A Laceration without foreign body of left elbow, initial encounter; R41.0 Disorientation, unspecified; W01.0XXA Fall on same level from slipping, tripping and stumbling without subsequent striking against object, initial encounter; Y92.091 Bathroom in other non-institutional residence as the place of occurrence of the external cause; Z79.01 Long term (current) use of anticoagulants | CPT/HCPCS: A0425; A0427 ==

== ENCOUNTER 2022-03-05 09:18 | Outpatient (CLI) | payer MEDICARE, OTHER ==
--- NOTE | 2022-03-05 10:48 | CT Report ---
PROCEDURE: CT brain without contrast INDICATIONS: CHRONIC SUBDURAL HEMATOMA TECHNIQUE: Noncontrast 4.5 mm thick angled axial sections acquired from the foramen magnum to the vertex. For r adiation dose reduction, the following was used: automated exposure control, adjustment of mA and/or kV according to patient size. COMPARISON: None. FINDINGS: Image quality: Excellent. CSF spaces: Basal cisterns are patent. Ventricles are normal in size and shape. Brain: No midline shift. No intracranial masses or hemorrhage. Law-white matter interface is norm al. Moderate atrophy and multifocal white matter chronic ischemic change noted. Atherosclerotic vasc ular calcification noted in the cavernous segments of both internal carotid arteries as well as the i ntradural vertebral arteries. Thin bilateral extra-axial fluid collections are CSF density in stable from the prior. Skull and face: Calvarium and visualized facial bones are intact, without suspicious lesions. Sinuses: Visualized sinuses and mastoids are clear. IMPRESSION: 1. Atrophy and chronic ischemic change acute intracranial hemorrhage or mass effect. 2. Stable thin bilateral extra-axial fluid collections reflect chronic subdural hematomas or hygromas . No mass effect or midline shift Reviewed by: Galdino Ng MD on 03/05/2022 9:47 AM TIM Approved by: Galdino Ng MD on 03/05/2022 9:47 AM AKJENN Station ID: [id number]
== END 2022-03-05 09:19 | disposition home or self-care (01) ==
LOC: DI 09:18
PROVIDERS: ATTEND Neurological Surgery
DX: I62.03 Nontraumatic chronic subdural hemorrhage (principal); G31.9 Degenerative disease of nervous system, unspecified; I67.82 Cerebral ischemia

== ENCOUNTER 2022-07-04 13:37 | Outpatient (CLI) | payer MEDICARE, OTHER | END 2022-07-04 23:59 | disposition EMS.NT | LOC: EMS 13:37 | DX: S51.012A Laceration without foreign body of left elbow, initial encounter (principal); W05.0XXA Fall from non-moving wheelchair, initial encounter; Y92.099 Unspecified place in other non-institutional residence as the place of occurrence of the external cause ==

== ENCOUNTER 2022-08-04 14:36 | Emergency (ER) | payer MEDICARE, OTHER ==
--- NOTE | 2022-08-04 14:52 | ED Physician Documentation ---
History of Present Illness - Stated complaint Stated Complaint: HIP PX - History obtained from History obtained from: Patient, EMS - Additonal information Additional information: The patient is brought to the emergency department by EMS for chief complaint of left hip pain with ambulation. The patient took a fall a few months ago and had a hip fracture which was repaired operatively. The patient states that he has had pain in the hip with walking ever since. He denies any recent falls. He states that he sometimes lays on that side when he is in bed and sometimes on his right side. He denies any numbness or tingling in his lower extremities. No other complaints at this time. Review of Systems Ten Systems: 10 systems reviewed and negative Constitutional: reports: Reviewed and negative Eyes: reports: Reviewed and negative Ears: reports: Reviewed and negative Nose: reports: Reviewed and negative Throat: reports: Reviewed and negative Cardiac: reports: Reviewed and negative Respiratory: reports: Reviewed and negative GI: reports: Reviewed and negative : reports: Reviewed and negative Skin: reports: Reviewed and negative Musculoskeletal: reports: Joint pain, Pain with weight bearing Neurologic: reports: Reviewed and negative Psychiatric: reports: Reviewed and negative Endocrine: reports: Reviewed and negative Immunocompromised: reports: Reviewed and negative PD PAST MEDICAL HISTORY - Past Medical History Cardiovascular: Valve disorder, Other Respiratory: None Neuro: Parkinson's Endocrine/Autoimmune: None : Benign prostate hypertrophy, Other HEENT: None Psych: None Musculoskeletal: None Derm: None - Past Surgical History Past Surgical History: Yes General: Colonoscopy Cardiovascular: Valve replacement - Present Medications Home Medications: Ambulatory Orders Medication Instructions Recorded Confirmed Acetaminophen [Acetaminophen Extra 500 mg PO Q8HR PRN 08/04/22 08/04/22 Strength] Carbidopa/Levodopa [Carbidopa-Levo 1 each PO QID 08/04/22 08/04/22 ER 25-100 Tab] - Allergies Allergies/Adverse Reactions: Allergies Allergy/AdvReac Type Severity Reaction Status Date / Time Iodinated Contrast Media Allergy Intermediate Rash Verified 08/04/22 14:40 [Iodinated Contrast Media - IV Dye] - Social History Does the pt smoke?: No Smoking Status: Former smoker PD ED PE NORMAL - Vitals Vital signs reviewed: Yes - General General: No acute distress, Well developed/nourished, Other (Alert and answers questions appropriately.) - HEENT HEENT: Atraumatic, PERRL, EOMI, Moist mucous membranes - Neck Neck: Supple, no meningeal sign - Cardiac Cardiac: Strong equal pulses - Respiratory Respiratory: No respiratory distress - Derm Derm: Normal color, Warm and dry, No rash - Extremities Extremities: No deformity, No edema, Other (Mild tenderness palpation over left hip just posteriorly. The patient is laying on his left side without complaint upon my arrival in the room.) - Neuro Neuro: Alert and oriented X 3 - Psych Psych: Normal mood, Normal affect Results - Vitals Vitals: Vital Signs - 24 hr 08/04/22 08/04/22 14:40 16:23 Temperature 37.2 C Heart Rate 55 L 62 Respiratory 19 16 Rate Blood Pressure 120/55 L 165/91 H O2 Saturation 98 97 Oxygen O2 Source Room air - Rads (name of study) L hip x-ray series Radiology: Final report received, EMP read indepedently, See rad report (nad) PD MEDICAL DECISION MAKING - ED course Complexity details: reviewed results, re-evaluated patient, considered differential, d/w patient ED course: The patient was worked up with an x-ray series of his left hip, which was negative. Pt was stable for d/c home. Departure - Departure Disposition: Home, Self Care Clinical Impression: Hip pain Condition: Stable Instructions: Hip Osteoarthritis Comments: There is no evidence of trauma and the hip x-rays do not show any break or dislocation. All of the surgical hardware is in correct placement. Most likely, there is some scar tissue related to the injury and surgery that is causing some ongoing pain. There is also still going to be bone remodeling for a number of months after a fracture or surgery, which can also cause some ongoing pain until the remodeling process is complete. As Mr. Coffey has related that Tylenol is helpful for his discomfort, he may have Tylenol 650 mg every 4 hours as needed for the hip pain. He may also use an assistive device, such as a walker, to help with some of the instability and discomfort. Please have him follow-up with his primary doctor for any further concerns. Discharge Date/Time: 08/04/22 17:49
[2022-08-04] MEDS ORDERED: ACETAMINOPHEN/CODEINE 300 MG/30 MG TABLET PO STA (15:15)
--- NOTE | 2022-08-04 15:40 | XRAY Report ---
PROCEDURE: Hip w/Pelvis 2-3V LT INDICATIONS: hip pain TECHNIQUE: AP pelvis with AP and frog-leg lateral view(s) of the left hip(s). COMPARISON: None. FINDINGS: Bones: No fractures or dislocations. Pelvic ring appears intact. No suspicious bony lesions. Left hip surgical hardware intact with no evidence of hardware failure or loosening. Soft tissues: The visualized bowel gas pattern is normal. No suspicious soft tissue calcifications. Prostate implant seeds. IMPRESSION: No evidence of acute bony abnormality of the pelvis and left hip. Reviewed by: Kurt Scott MD on 08/04/2022 3:39 PM PST Approved by: Kurt Scott MD on 08/04/2022 3:39 PM PST Station ID: [id number]
[2022-08-04 16:25] VITALS: BP 165/91
== END 2022-08-04 17:49 | disposition home or self-care (01) ==
LOC: EDUNIT# → ED 14:36
DX: M25.552 Pain in left hip (principal); Z87.891 Personal history of nicotine dependence
CPT/HCPCS: 73502; 99282; 99283; A9270

== ENCOUNTER → 2022-08-04 | Outpatient (CLI) | payer MEDICARE, OTHER | END | disposition home or self-care (01) | LOC: EMS 17:54 | PROVIDERS: ATTEND Emergency Medicine | DX: R41.89 Other symptoms and signs involving cognitive functions and awareness (principal); M25.559 Pain in unspecified hip | CPT/HCPCS: A0425; A0428 ==

== ENCOUNTER → 2022-08-04 | Outpatient (CLI) | payer MEDICARE, OTHER | END | disposition critical access hospital (66) | LOC: EMS 14:23 | DX: M25.552 Pain in left hip (principal) | CPT/HCPCS: A0425; A0429 ==

== ENCOUNTER 2022-09-14 04:00 | Outpatient (CLI) | payer MEDICARE, OTHER | END 2022-09-14 04:01 | disposition critical access hospital (66) | LOC: EMS 04:00 | DX: R46.4 Slowness and poor responsiveness (principal) | CPT/HCPCS: A0425; A0429 ==

== ENCOUNTER 2022-09-14 04:14 | Emergency (ER) | payer MEDICARE, OTHER ==
--- NOTE | 2022-09-14 04:45 | ED Physician Documentation ---
History of Present Illness - Stated complaint Stated Complaint: AMS - Chief complaint Chief Complaint: Neuro - History obtained from History obtained from: Family (Alyse), EMS - Additonal information Additional information: 82-year-old man presents with staring spell late this evening. Apparently around 3 AM he was talking and at 4 AM he was staring when caregiver went to check on him therefore they called EMS to bring him to the emergency department for evaluation.Patient has POLST DNR/DNI with comfort measures only. Confirmed this with SHAILA Cullen who states that it is not within the patient's wishes to have expecting or extensive work-up.Further history limited by patient dementia. Review of Systems Unable to obtain: Dementia PD PAST MEDICAL HISTORY - Past Medical History Past Medical History: Yes Cardiovascular: Valve disorder, Other Respiratory: None Neuro: CVA, TIA, Parkinson's Endocrine/Autoimmune: None GI: None : Benign prostate hypertrophy, Other HEENT: None Psych: None Musculoskeletal: None Derm: None Other Past Medical History: Raynaud's Syndrome w/o Gangrene. Angina Pectoris, unspecified. Congenital stenosis of aortic valve. Traumatic Subdural Hemorrhage with LOC. Fall on same level, subsequent encounters - Past Surgical History Past Surgical History: Yes General: Colonoscopy Cardiovascular: Valve replacement - Present Medications Home Medications: Ambulatory Orders Medication Instructions Recorded Confirmed Acetaminophen [Acetaminophen Extra 500 mg PO Q8HR PRN 08/04/22 08/04/22 Strength] Carbidopa/Levodopa [Carbidopa-Levo 1 each PO QID 08/04/22 08/04/22 ER 25-100 Tab] - Allergies Allergies/Adverse Reactions: Allergies Allergy/AdvReac Type Severity Reaction Status Date / Time Iodinated Contrast Media Allergy Intermediate Rash Verified 08/04/22 14:40 [Iodinated Contrast Media - IV Dye] - Social History Does the pt smoke?: No Smoking Status: Never smoker Does the pt drink ETOH?: No Does the pt have substance abuse?: No - Immunizations Immunizations are current?: Yes - POLST Patient has POLST: Yes PD ED PE NORMAL - Vitals Vital signs reviewed: Yes - General General: No acute distress, Other (elderly man sitting up in bed, staring at the wall. intermittently eye tracking around the room. ) - HEENT HEENT: Atraumatic, PERRL, EOMI, Moist mucous membranes - Neck Neck: Supple, no meningeal sign - Cardiac Cardiac: RRR - Respiratory Respiratory: No respiratory distress, Clear bilaterally - Neuro Eye Opening: Spontaneous Motor: Localizes to Pain Verbal: None GCS Score: 10 - Psych Psych: Other (Parkinson's dementia) Results - Vitals Vitals: Vital Signs - 24 hr 09/14/22 04:15 Temperature 36.7 C Heart Rate 56 L Respiratory 22 Rate Blood Pressure 153/77 H O2 Saturation 97 Oxygen O2 Source Room air PD Medical Decision Making - ED course ED course: 82-year-old man with history of Parkinson's dementia presents with staring spell this evening. Because we are pursuing comfort oriented care and he is not in pain, I am discharging him back to [facility]. Discussed with Jayjay, staff member at memory care unit. Patient may return if there are other concerns. Plan to follow-up with primary care provider. Departure - Departure Disposition: Home, Self Care Clinical Impression: Parkinson's disease dementia Condition: Stable Instructions: ED Dementia Caregiver Support Comments: Mr. Coffey was seen for medical evaluation and after discussion with his SHAILA Cullen and with staff at [facility], he was sent back to memory care with the understanding that his care should be oriented toward comfort and management of progressive Parkinsons dementia. Please have him return to the emergency department if there are other concerns. He may follow-up with his primary care provider. Please consult his POLST form for directions on comfort oriented care.
[2022-09-14 05:32] VITALS: BP 155/78
== END 2022-09-14 05:27 | disposition home or self-care (01) ==
LOC: EDUNIT# → ED 04:14
DX: G20 Parkinson's disease (principal); F02.80 Dementia in other diseases classified elsewhere, unspecified severity, without behavioral disturbance, psychotic disturbance, mood disturbance, and anxiety; Z66 Do not resuscitate
CPT/HCPCS: 99283; 99284

== ENCOUNTER 2022-09-14 05:26 | Outpatient (CLI) | payer MEDICARE, OTHER | END 2022-09-14 05:27 | disposition home or self-care (01) | LOC: EMS 05:26 | PROVIDERS: ATTEND Emergency Medicine | DX: R41.0 Disorientation, unspecified (principal); G20 Parkinson's disease; F02.80 Dementia in other diseases classified elsewhere, unspecified severity, without behavioral disturbance, psychotic disturbance, mood disturbance, and anxiety | CPT/HCPCS: A0425; A0428 ==

== ENCOUNTER 2023-07-24 01:34 | Outpatient (CLI) | payer MEDICARE, OTHER | END 2023-07-24 01:35 | disposition critical access hospital (66) | LOC: EMS 01:34 | DX: R46.89 Other symptoms and signs involving appearance and behavior (principal); R45.1 Restlessness and agitation; R53.1 Weakness; R41.0 Disorientation, unspecified | CPT/HCPCS: A0425; A0429 ==

== ENCOUNTER 2023-07-24 01:49 | Emergency (ER) | payer MEDICARE, OTHER ==
[2023-07-24 01:59] LABS: BILIRUBIN,URINE NEGATIVE (NEGATIVE); GLUCOSE, URINE (UA) NEGATIVE (NEGATIVE); KETONES,URINE (UA) TRACE mg/dL (NEGATIVE); LEUKOCYTE ESTERASE, URINE NEGATIVE (NEGATIVE); NITRITE,URINE NEGATIVE (NEGATIVE); OCCULT BLOOD,URINE NEGATIVE (NEGATIVE); PROTEIN,URINE NEGATIVE (NEGATIVE); UROBILINOGEN,URINE 2 E.U./dL (NORMAL)
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
[2023-07-24 02:01] LABS: CLARITY,URINE CLEAR (CLEAR)
[2023-07-24 02:06] VITALS: BP 122/79; O2SAT 100
== END 2023-07-24 02:07 | disposition home or self-care (01) ==
LOC: EDUNIT# → ED 01:49
DX: G20.A1 Parkinson's disease without dyskinesia, without mention of fluctuations (principal); F02.818 Dementia in other diseases classified elsewhere, unspecified severity, with other behavioral disturbance
CPT/HCPCS: 81001; 81003; 87086; 99282; 99283

== ENCOUNTER 2023-07-24 02:09 | Outpatient (CLI) | payer MEDICARE, OTHER | END 2023-07-24 02:10 | disposition home or self-care (01) | LOC: EMS 02:09 | PROVIDERS: ATTEND Emergency Medicine | DX: F03.90 Unspecified dementia, unspecified severity, without behavioral disturbance, psychotic disturbance, mood disturbance, and anxiety (principal); R41.0 Disorientation, unspecified; R53.1 Weakness; Z74.01 Bed confinement status | CPT/HCPCS: A0425; A0428 ==